=== PATIENT | male | born 1995 | race Caucasian/White ===

== ENCOUNTER 2024-10-12 09:01 | Inpatient (IN) | payer BC, MEDICAID ==
[2024-10-12 09:51] LABS: Glucose,Whole Blood 124 mg/dL (70-110)
--- NOTE | 2024-10-12 10:02 | ED ---
General Adult HPI - General Stated complaint: Petition Time Seen by Provider: 10/12/24 09:34 - History of Present Illness Initial comments: Dictation was produced using [employer] dictation software. please excuse any grammatical, word or spelling errors. Chief Complaint: 29-year-old male brought to the ER for bizarre behavior History of Present Illness: Patient 29-year-old male presents to the emergency department with acute onset bizarre behavior. Allegedly patient had taken some CBD oil. Patient acting bizarrely and having nonsensical speech. Patient reports that he feels tingly all over. He did mention to family that he had some chest pain. Denies any chest pain at the bedside. Send clear patient has a history of psychiatric illness. The ROS documented in this emergency department record has been reviewed and confirmed by me. Those systems with pertinent positive or negative responses have been documented in the HPI. All other systems are other negative and/or noncontributory. - Related Data Home Medications Medication Instructions Recorded Confirmed Acetaminophen Tab [Tylenol Tab] 1,000 mg PO Q6HR PRN 10/12/24 10/12/24 Allergies Allergy/AdvReac Type Severity Reaction Status Date / Time No Known Allergies Allergy Verified 10/12/24 12:16 Review of Systems ROS Statement: Those systems with pertinent positive or pertinent negative responses have been documented in the HPI. ROS Other: All systems not noted in ROS Statement are negative. General Exam - General Exam Comments Initial Comments: PHYSICAL EXAM: General Impression: Alert and oriented x3, not in acute distress, uncooperative HEENT: Normocephalic atraumatic, extra-ocular movements intact, pupils equal and reactive to light bilaterally, mucous membranes moist. Cardiovascular: Heart regular rate and rhythm Chest: Able to complete full sentences, no retractions, no tachypnea Abdomen: abdomen soft, non-tender, non-distended, no organomegaly Musculoskeletal: Pulses present and equal in all extremities, no peripheral edema Motor: no focal deficits noted Neurological: CN II-XII grossly intact, no focal motor or sensory deficits noted Skin: Intact with no visualized rashes Psych: Tangential speech Course Vital Signs 10/12/24 09:34 Temperature 99.0 F Pulse Rate 103 H Respiratory 20 Rate Blood Pressure 137/81 O2 Sat by Pulse 97 Oximetry EKG Findings - EKG Comments: EKG Findings:: My EKG interpretation: Ventricular rate 67, sinus rhythm,. 126, QRS 90, QTc 396. No WA prolongation, no QTC prolongation, no ST or T-wave changes noted. Overall, this EKG is unremarkable Medical Decision Making - Medical Decision Making Was pt. sent in by a medical professional or institution ([facility], ED EDUCATIONAL AIDE, urgent care, hospital, or intermediate...) When possible be specific @ -No Did you speak to anyone other than the patient for history (EMS, parent, family, police, friend...)? What history was obtained from this source @ -No Did you review nursing and triage notes (agree or disagree)? Why? @ -I reviewed and agree with nursing and triage notes Were old charts reviewed (outside hosp., previous admission, EMS record, old EKG, old radiological studies, urgent care reports/EKG's, intermediate records)? Report findings @ -No old charts were reviewed Differential Diagnosis (chest pain, altered mental status, abdominal pain women, abdominal pain men, vaginal bleeding, musculoskeletal, weakness, fever, dyspnea, syncope, headache, dizziness, GI bleed, back pain, seizure, CVA, palpatations, mental health)? @ -Differential Mental Health: Depression, anxiety, bipolar, psychosis, schizophrenia, borderline personality, situational depression, adjustment disorder, behavioral disorder, brain tumor, malingering, substance abuse, encephalopathy, medication reaction, dementia, hypothyroidism, degenerative neurologic disorder, lupus.... This is not meant to be all-inclusive list EKG interpreted by me (3pts min.). @ -See above X-rays interpreted by me (1pt min.). @ -None done CT interpreted by me (1pt min.). @ -Brain is nonacute U/S interpreted by me (1pt. min.). @ -None done What testing was considered but not performed or refused? (CT, X-rays, U/S, labs)? Why? @ -None What meds were considered but not given or refused? Why? @ -None Was smoking cessation discussed for >3mins.? @ -No Were there social determinants of health that impacted care today? How? (Homelessness, low income, unemployed, alcoholism, drug addiction, transp ortation, low edu. Level, literacy, decrease access to med. care, retirement, rehab)? @ -No Was there de-escalation of care discussed even if they declined (Discuss DNR or withdrawal of care, Hospice)? DNR status @ -No What co-morbidities impacted this encounter? (DM, HTN, Smoking, COPD, CAD, Cancer, CVA, ARF, Chemo, Hep., AIDS, mental health diagnosis, sleep apnea, morbid obesity)? @ -None Was patient admitted / discharged? Hospital course, mention meds given and route, prescriptions, significant lab abnormalities, going to OR and other pertinent info. @ -29-year-old male presents emergency department for psychiatric evaluation. Patient allegedly has no history of psychiatric illness and his psychiatric symptoms have started acutely. Vital signs are stable. Patient acutely psychotic at the bedside. Laboratory evaluation is unremarkable. Studies are negative. Patient medically cleared for EPS evaluation. EPS evaluated patient recommended inpatient psych admission. Clinical certification completed Did you discuss the management of the patient with other professionals (professionals i.e. , PA, ED EDUCATIONAL AIDE, lab, RT, psych nurse, director of social work, ballpoint pens assembler, teacher, armored vehicle officer, director of casework department)? Give summary @ -As above Was critical care preformed (if so, how long)? @ -No Undiagnosed new problem with uncertain prognosis? @ -No Drug Therapy requiring intensive monitoring for toxicity (Heparin, Nitro, Insulin, Cardizem)? @ -No Were any procedures done? @ -No Diagnosis/symptom? Acute, or Chronic, or Acute on Chronic? Uncomplicated (without systemic symptoms) or Complicated (systemic symptoms)? @ -Acute psychosis Side effects of treatment? @ -No Exacerbation, Progression, or Severe Exacerbation? @ -No Poses a threat to life or bodily function? How? (Chest pain, [place], [place], pneumonia, PE, COPD, DKA, ARF, appy, cholecystitis, CVA, Diverticulitis, Homicidal, Suicidal, threat to staff... and all critical care pts) @ -yes - Lab Data Result diagrams: 10/12/24 10:32 10/12/24 10:32 Lab Results 10/12/24 10/12/24 10/12/24 Range/Units 09:49 10:32 10:32 WBC 6.19 (4.50-10.00) 10*3/uL RBC 5.61 H (4.40-5.60) 10*6/uL Hgb 16.0 (13.0-17.0) g/dL Hct 44.7 (39.6-50.0) % MCV 79.7 L (80.0-97.0) fL MCH 28.5 (27.0-32.0) pg MCHC 35.8 (32.0-37.0) g/dL Plt Count 254 (140-440) 10*3/uL MPV 8.8 L (9.5-12.2) fL Immature Gran % (Auto) 0.2 % Neutrophils % 71.6 % Lymphocytes % 19.2 % Monocytes % 8.7 % Eosinophils % 0.0 % Basophils % 0.3 % Immature Gran # 0.01 (0.00-0.04) 10*3/uL Neutrophils # 4.43 (1.80-7.70) 10*3/uL Lymphocytes # 1.19 (0.90-5.00) 10*3/uL Monocytes # 0.54 (0.20-1.00) 10*3/uL Eosinophils # 0.00 L (0.04-0.35) 10*3/uL Basophils # 0.02 (0.00-0.10) 10*3/uL Sodium (137-145) mmol/L Potassium (3.5-5.1) mmol/L Chloride (98-107) mmol/L Carbon Dioxide (22-30) mmol/L Anion Gap mmol/L BUN (9-20) mg/dL Creatinine (0.66-1.25) mg/dL Est GFR (CKD-EPI)AfAm (>60 ml/min/1.73 sqM) Est GFR (CKD-EPI)NonAf (>60 ml/min/1.73 sqM) Glucose (74-99) mg/dL POC Glucose (mg/dL) 124 H (70-110) mg/dL POC Glu Certified Medical Transcriptionist ID [place] [facility] Calcium (8.4-10.2) mg/dL Total Bilirubin (0.2-1.3) mg/dL AST (17-59) U/L ALT (4-49) U/L Alkaline Phosphatase (38-126) U/L Total Protein (6.3-8.2) g/dL Albumin (3.5-5.0) g/dL Salicylates mg/dL Urine Opiates Screen Not Detected (NotDetected) Ur Oxycodone Screen Not Detected (NotDetected) Urine Methadone Screen Not Detected (NotDetected) Acetaminophen ug/mL Ur Barbiturates Screen Not Detected (NotDetected) U Tricyclic Antidepress Not Detected (NotDetected) Ur Phencyclidine Scrn Not Detected (NotDetected) Ur Amphetamines Screen Not Detected (NotDetected) U Methamphetamines Scrn Not Detected (NotDetected) U Benzodiazepines Scrn Not Detected (NotDetected) Urine Cocaine Screen Not Detected (NotDetected) U Marijuana (THC) Screen Detected H (NotDetected) Serum Alcohol mg/dL SARS-CoV-2 (PCR) (Not Detectd) 10/12/24 10/12/24 Range/Units 10:32 13:01 WBC (4.50-10.00) 10*3/uL RBC (4.40-5.60) 10*6/uL Hgb (13.0-17.0) g/dL Hct (39.6-50.0) % MCV (80.0-97.0) fL MCH (27.0-32.0) pg MCHC (32.0-37.0) g/dL Plt Count (140-440) 10*3/uL MPV (9.5-12.2) fL Immature Gran % (Auto) % Neutrophils % % Lymphocytes % % Monocytes % % Eosinophils % % Basophils % % Immature Gran # (0.00-0.04) 10*3/uL Neutrophils # (1.80-7.70) 10*3/uL Lymphocytes # (0.90-5.00) 10*3/uL Monocytes # (0.20-1.00) 10*3/uL Eosinophils # (0.04-0.35) 10*3/uL Basophils # (0.00-0.10) 10*3/uL Sodium 142 (137-145) mmol/L Potassium 3.7 (3.5-5.1) mmol/L Chloride 105 (98-107) mmol/L Carbon Dioxide 25 (22-30) mmol/L Anion Gap 12 mmol/L BUN 6 L (9-20) mg/dL Creatinine 0.84 (0.66-1.25) mg/dL Est GFR (CKD-EPI)AfAm >90 (>60 ml/min/1.73 sqM) Est GFR (CKD-EPI)NonAf >90 (>60 ml/min/1.73 sqM) Glucose 105 H (74-99) mg/dL POC Glucose (mg/dL) (70-110) mg/dL POC Glu Certified Medical Transcriptionist ID Calcium 10.2 (8.4-10.2) mg/dL Total Bilirubin 1.0 (0.2-1.3) mg/dL AST 30 (17-59) U/L ALT 25 (4-49) U/L Alkaline Phosphatase 66 (38-126) U/L Total Protein 8.1 (6.3-8.2) g/dL Albumin 5.2 H (3.5-5.0) g/dL Salicylates <1.0 mg/dL Urine Opiates Screen (NotDetected) Ur Oxycodone Screen (NotDetected) Urine Methadone Screen (NotDetected) Acetaminophen <10.0 ug/mL Ur Barbiturates Screen (NotDetected) U Tricyclic Antidepress (NotDetected) Ur Phencyclidine Scrn (NotDetected) Ur Amphetamines Screen (NotDetected) U Methamphetamines Scrn (NotDetected) U Benzodiazepines Scrn (NotDetected) Urine Cocaine Screen (NotDetected) U Marijuana (THC) Screen (NotDetected) Serum Alcohol <10 mg/dL SARS-CoV-2 (PCR) Not Detected (Not Detectd) Disposition Clinical Impression: Psychosis Disposition: TRANSFER TO PSYCH HOSP/UNIT Condition: Fair Decision Time: 14:55
[2024-10-12 10:40] LABS: Basophils # (A) 0.02 10*3/uL (0.00-0.10); Basophils % (A) 0.3 %; HCT 44.7 % (39.6-50.0); Lymphocytes # (A) 1.19 10*3/uL (0.90-5.00); Lymphocytes % (A) 19.2 %; MCH 28.5 pg (27.0-32.0); MCHC 35.8 g/dL (32.0-37.0); MCV 79.7 fL (80.0-97.0); Mean Platelet Volume 8.8 fL (9.5-12.2); Monocytes # (A) 0.54 10*3/uL (0.20-1.00); Monocytes % (A) 8.7 %; Neutrophils # (A) 4.43 10*3/uL (1.80-7.70); Neutrophils % (A) 71.6 %; Platelet Count 254 10*3/uL (140-440); RBC 5.61 10*6/uL (4.40-5.60); RDW 12.9 % (11.5-14.5); WBC 6.19 10*3/uL (4.50-10.00)
[2024-10-12 10:54] LABS: ALT 25 U/L (4-49); AST 30 U/L (17-59); Acetaminophen <10.0 ug/mL; African American GFR (CKD) >90 (>60 ml/min/1.73 sqM); Albumin 5.2 g/dL (3.5-5.0); Alcohol <10 mg/dL; Alkaline Phosphatase 66 U/L (38-126); Anion Gap 12 mmol/L; Blood Urea Nitrogen 6 mg/dL (9-20); Calcium 10.2 mg/dL (8.4-10.2); Carbon Dioxide 25 mmol/L (22-30); Chloride 105 mmol/L (98-107); Glucose 105 mg/dL (74-99); Non-African American GFR(CKD) >90 (>60 ml/min/1.73 sqM); Potassium 3.7 mmol/L (3.5-5.1); Salicylate <1.0 mg/dL; Sodium 142 mmol/L (137-145); Total Protein 8.1 g/dL (6.3-8.2)
[2024-10-12 11:03] LABS: Amphetamine Screen,Urine Not Detected (NotDetected); Barbiturate Screen,Urine Not Detected (NotDetected); Benzodiazepines Screen,Urine Not Detected (NotDetected); Cocaine Screen,Urine Not Detected (NotDetected); Methadone Screen, Urine Not Detected (NotDetected); Opiate Screen,Urine Not Detected (NotDetected); Oxycodone Screen, Urine Not Detected (NotDetected); Phencyclidine Screen,Urine Not Detected (NotDetected); Tricyclic Antidepressant,Urine Not Detected (NotDetected); Urn Cannabinoid Scrn Detected (NotDetected)
[2024-10-12] MEDS: HALOPERIDOL LACTATE 5 MG/ML 1 ML VIAL IM STA (12:51)
[2024-10-12] MEDS: LORazepam 2 MG/ML INJ IM STA (12:51)
[2024-10-12] MEDS: diphenhydrAMINE 50 MG/ML 1 ML VIAL IVP STA (12:52)
[2024-10-12] MEDS: diphenhydrAMINE 50 MG/ML 1 ML VIAL IM STA (12:52)
[2024-10-12] MEDS: LORazepam 2 MG/ML INJ IV STA (12:52)
--- NOTE | 2024-10-12 14:45 | CT ---
EXAMINATION TYPE: CT brain wo con DATE OF EXAM: 10/12/2024 COMPARISON: None CLINICAL INDICATION: Male, 29 years old with history of ams; PHH, AMS. CT DLP: 1112 mGycm Automated exposure control for dose reduction was used. Findings: The ventricles, basal cisterns and sulci over the convexities are within normal limits and there is n o mass effect or shift of midline structures. No abnormal density is seen throughout the brain parenchyma and there is no acute intra or extra-axia l hemorrhage. The posterior fossa including the brainstem, fourth ventricle and cerebellar pontine angles appear no rmal. Intraorbital contents appear normal and symmetric. Visualized paranasal sinuses and mastoid air cells are well aerated. The calvarium is intact. IMPRESSION: No significant abnormality seen. There is no acute bleed or mass effect. [facility], , 10/12/2024 2:43 PM
[2024-10-12] MEDS ORDERED: MAGNESIUM HYDROXIDE 2,400 MG/30 ML CUP PO PRN (15:01)
[2024-10-12] MEDS ORDERED: ACETAMINOPHEN TAB 325 MG TAB PO PRN (15:01)
[2024-10-12] MEDS ORDERED: MAG HYDROX/AL HYDROX/SIMETH 355 ML BOTTLE PO PRN (15:01)
[2024-10-12] MEDS ORDERED: IBUPROFEN 600 MG TAB PO PRN (15:01)
[2024-10-12] MEDS ORDERED: haloperidoL 5 MG TAB PO PRN (15:02)
[2024-10-12] MEDS ORDERED: HALOPERIDOL LACTATE 5 MG/ML 1 ML VIAL IM PRN (15:02)
[2024-10-12] MEDS ORDERED: LORazepam 2 MG/ML INJ IM PRN (15:02)
[2024-10-12] MEDS ORDERED: LORazepam 1 MG TAB PO PRN (15:02)
[2024-10-12] MEDS: NICOTINE 14MG/24HR PATCH TRANSDERM SCH (15:47)
--- NOTE | 2024-10-12 21:14 | P.CONS ---
History of Present Illness - Reason for Consult Consult date: 10/12/24 medical comanagement - Chief Complaint Bizarre behavior - History of Present Illness Orlin is a-year-old male with past medical history of CBD oil usage Patient endorses that he uses CBD oil for approximate the past 5 years. He reports that he put CBD oil underneath his tongue sublingual. He reports his last use was yesterday. The patient is not exactly clear on what the circumstance are regarding his hospitalizations however per psychiatry notes the patient was having bizarre behavior and was having nonsensical speech. He was given psychotropics by the ER and then was admitted to inpatient behavioral health thereafter. Per chart review urine drug screen was positive for cannabis. CBC and BMP were otherwise unremarkable. Alcohol level was negative The patient denies using any other recreational drugs. He denies using alcohol or tobacco products. Review of Systems Pertinent positives and negatives as discussed in HPI, a complete review of systems was performed and all other systems are negative. Past Medical History Past Medical History: No Reported History History of Any Multi-Drug Resistant Organisms: None Reported Past Surgical History: No Surgical Hx Reported Smoking Status: Former smoker Medications and Allergies Home Medications Medication Instructions Recorded Confirmed Type Acetaminophen Tab [Tylenol Tab] 1,000 mg PO Q6HR PRN 10/12/24 10/12/24 History Allergies Allergy/AdvReac Type Severity Reaction Status Date / Time No Known Allergies Allergy Verified 10/12/24 16:01 Physical Exam Vitals: Vital Signs Temp Pulse Pulse Resp BP BP Pulse Ox 10/12/24 15:30 98.5 F 89 18 122/80 97 10/12/24 15:17 98.2 F 105 H 16 104/56 99 10/12/24 09:34 99.0 F 103 H 20 137/81 97 Intake and Output 10/12/24 10/12/24 10/12/24 06:59 14:59 22:59 Other: Weight 79.577 kg General: non toxic, male appears stated age. Derm: warm, dry Head: atraumatic, normocephalic, symmetric Eyes: EOMI, no lid lag, anicteric sclera ENT: Nose and ears atraumatic, no thrush, no pharyngeal erythema Neck: No thyromegaly, no cervical lymphadenopathy, trachea midline, supple Mouth: no lip lesion, mucus membranes moist Cardiovascular: S1S2 reg, no murmur Lungs: clear to ascultation bilateral on room air Abdominal: soft, nontender to palpation, no guarding, no appreciable organomegaly Ext: no gross muscle atrophy appreciated Neuro: moving all extremeties Psych: calm. at times cooperative however at times does not appear to coopearate with physical exam/HPI Results CBC & Chem 7: 10/12/24 10:32 10/12/24 10:32 Labs: Abnormal Lab Results - Last 24 Hours (Table) 10/12/24 10/12/24 10/12/24 Range/Units 09:49 10:32 10:32 RBC 5.61 H (4.40-5.60) 10*6/uL MCV 79.7 L (80.0-97.0) fL MPV 8.8 L (9.5-12.2) fL Eosinophils # 0.00 L (0.04-0.35) 10*3/uL BUN (9-20) mg/dL Glucose (74-99) mg/dL POC Glucose (mg/dL) 124 H (70-110) mg/dL Albumin (3.5-5.0) g/dL U Marijuana (THC) Screen Detected H (NotDetected) 10/12/24 Range/Units 10:32 RBC (4.40-5.60) 10*6/uL MCV (80.0-97.0) fL MPV (9.5-12.2) fL Eosinophils # (0.04-0.35) 10*3/uL BUN 6 L (9-20) mg/dL Glucose 105 H (74-99) mg/dL POC Glucose (mg/dL) (70-110) mg/dL Albumin 5.2 H (3.5-5.0) g/dL U Marijuana (THC) Screen (NotDetected) Assessment and Plan Assessment: #) Psychosis, 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 UDS positive for cannabis. He was provided with psychotropics in ER. I will check a RPR to r/o neurosyphillis. #) Cannabis/CBD oil usage. would recommend cessation RPR and TSH pending Thank you for allowing us to take care of this patient. please do not hesitate to contact [facility] physicians if any questions arise. Time with Patient: Greater than 30
--- NOTE | 2024-10-13 14:19 | P.HP ---
Psychiatric H&P - . H&P Date: 10/13/24 History & Physical: Allergies Allergy/AdvReac Type Severity Reaction Status Date / Time No Known Allergies Allergy Verified 10/12/24 16:01 Vital Signs Temp 98.1 F 10/13/24 08:28 Pulse 116 H 10/13/24 13:22 Resp 18 10/13/24 08:28 BP 123/78 10/13/24 13:22 Pulse Ox 97 10/13/24 08:28 FiO2 Intake & Output 10/12/24 10/13/24 10/13/24 18:59 06:59 18:59 Weight 79.577 kg Laboratory Last Values WBC 6.19 10*3/uL (4.50-10.00) 10/12/24 10:32 RBC 5.61 10*6/uL (4.40-5.60) H 10/12/24 10:32 Hgb 16.0 g/dL (13.0-17.0) 10/12/24 10:32 Hct 44.7 % (39.6-50.0) 10/12/24 10:32 MCV 79.7 fL (80.0-97.0) L 10/12/24 10:32 MCH 28.5 pg (27.0-32.0) 10/12/24 10:32 MCHC 35.8 g/dL (32.0-37.0) 10/12/24 10:32 Plt Count 254 10*3/uL (140-440) 10/12/24 10:32 MPV 8.8 fL (9.5-12.2) L 10/12/24 10:32 Immature Gran % (Auto) 0.2 % 10/12/24 10:32 Neutrophils % 71.6 % 10/12/24 10:32 Lymphocytes % 19.2 % 10/12/24 10:32 Monocytes % 8.7 % 10/12/24 10:32 Eosinophils % 0.0 % 10/12/24 10:32 Basophils % 0.3 % 10/12/24 10:32 Immature Gran # 0.01 10*3/uL (0.00-0.04) 10/12/24 10:32 Neutrophils # 4.43 10*3/uL (1.80-7.70) 10/12/24 10:32 Lymphocytes # 1.19 10*3/uL (0.90-5.00) 10/12/24 10:32 Monocytes # 0.54 10*3/uL (0.20-1.00) 10/12/24 10:32 Eosinophils # 0.00 10*3/uL (0.04-0.35) L 10/12/24 10:32 Basophils # 0.02 10*3/uL (0.00-0.10) 10/12/24 10:32 Sodium 142 mmol/L (137-145) 10/12/24 10:32 Potassium 3.7 mmol/L (3.5-5.1) 10/12/24 10:32 Chloride 105 mmol/L (98-107) 10/12/24 10:32 Carbon Dioxide 25 mmol/L (22-30) 10/12/24 10:32 Anion Gap 12 mmol/L 10/12/24 10:32 BUN 6 mg/dL (9-20) L 10/12/24 10:32 Creatinine 0.84 mg/dL (0.66-1.25) 10/12/24 10:32 Est GFR (CKD-EPI)AfAm >90 (>60 ml/min/1.73 sqM) 10/12/24 10:32 Est GFR (CKD-EPI)NonAf >90 (>60 ml/min/1.73 sqM) 10/12/24 10:32 Glucose 105 mg/dL (74-99) H 10/12/24 10:32 POC Glucose (mg/dL) 124 mg/dL (70-110) H 10/12/24 09:49 POC Glu Maintenance Planning Clerk ID Ignacio Marinelli 10/12/24 09:[address] Glu mg/dL 100 mg/dL 10/12/24 10:32 Hemoglobin A1c 5.1 % (<=6.0) 10/12/24 10:32 Calcium 10.2 mg/dL (8.4-10.2) 10/12/24 10:32 Total Bilirubin 1.0 mg/dL (0.2-1.3) 10/12/24 10:32 AST 30 U/L (17-59) 10/12/24 10:32 ALT 25 U/L (4-49) 10/12/24 10:32 Alkaline Phosphatase 66 U/L (38-126) 10/12/24 10:32 Total Protein 8.1 g/dL (6.3-8.2) 10/12/24 10:32 Albumin 5.2 g/dL (3.5-5.0) H 10/12/24 10:32 TSH 1.820 UIU/ML (0.350-5.500) 10/12/24 10:32 Salicylates <1.0 mg/dL 10/12/24 10:32 Urine Opiates Screen Not Detected (NotDetected) 10/12/24 10:32 Ur Oxycodone Screen Not Detected (NotDetected) 10/12/24 10:32 Urine Methadone Screen Not Detected (NotDetected) 10/12/24 10:32 Acetaminophen <10.0 ug/mL 10/12/24 10:32 Ur Barbiturates Screen Not Detected (NotDetected) 10/12/24 10:32 U Tricyclic Antidepress Not Detected (NotDetected) 10/12/24 10:32 Ur Phencyclidine Scrn Not Detected (NotDetected) 10/12/24 10:32 Ur Amphetamines Screen Not Detected (NotDetected) 10/12/24 10:32 U Methamphetamines Scrn Not Detected (NotDetected) 10/12/24 10:32 U Benzodiazepines Scrn Not Detected (NotDetected) 10/12/24 10:32 Urine Cocaine Screen Not Detected (NotDetected) 10/12/24 10:32 U Marijuana (THC) Screen Detected (NotDetected) H 10/12/24 10:32 Serum Alcohol <10 mg/dL 10/12/24 10:32 Treponema pallidum Ab Nonreactive (Nonreactive) 10/12/24 10:32 SARS-CoV-2 (PCR) Not Detected (Not Detectd) 10/12/24 13:01 10/13/24 14:12 IDENTIFYING DATA: Patient is a 29-year-old male, unemployed and living independe ntly CHIEF COMPLAINT: Psychosis HPI: Patient presented to the hospital with bizarre behaviors. Per EPS, "Cl laying sideways on bed with feet on the floor and blanket over face. A/O x3 brought in by brother Cesar on a petition due to bizzare behavior,irritability, and paranoia. Clinician spoke with brother prior to evaluating Cl. Brother reports cl has not been themselves since the weekend prior. Brother reports " he has been talking to himself, saying random names, trouble rememebering family members, calling odd times of the day, believes people are out to do something to him. For example, he went to [employer] the other day, they accidentally gave him two cups, in his mind he thought they were trying to drug him. He's very argumentative with our parents. His focus is not good, he completely forgot to pick my Mom up at the airport, even though I had talked to him that morning and he reminded me he was going to. He showed up at my home at 5:00 am today making no sense and following my around asking for a hug very bizzarely. He kept reffering to me as vane which is not like him. We have never seen him like this, so I brought him here." Cl reports having no idea why they are at the hospital. When asked basic questions cl would be argumentative about details of the questions, refusing to answer unless the question was very specific. Cl presenting with flight of ideas, tangential, pressured speech, racing thoughts, bizzare behavior, paranoia, guarded, labile, demanding, and trouble w memory and focus. When asked questions that required yes or no answers cl would begin to di sect the reasoning for the question and demand specificity as to rationale of question and type. Brother reports cl has displayed paranoia in the past related to conspiracy theories and feaful people were out to get them. Brother reports " When he was at my house this morning he picked up the dog, who is usually on a leash, and started walking toward the road. I asked him what he was doing and he would'nt answer me, I finally ended up yelling at him to get him to respond. He said " I am going for a walk vane, keep my things with you, they will be needed later. You're ok." Brother states " conversations have been this way the last few days and not making sense. " Cl has masters in accounting and demanded to know clinicians degree, where is was obtained from, state license number, whether clinician has a bachelors in arts or sciences. Cl is unemployed and lives alone.Judgement/Insight/Impulse control : poor ADLS: fair Sleep/Miguel: vague answerts given " depends on the day." Could not remember what they ate the night before. Medical issues: none reported. Cl reports having not seen a PCP in "5 yrs". Medications: none reported. Hx of MH tx : none reported. Hx of FRANDY: UDS pos THC. Brother reports cl uses CBD oil. Cl reports alcohol occaisionally. When asked if they use drugs cl again asked for specificity as to legality, type, dosage etc. Hx of in pat rehab: none Fam hx: when asked about family hx cl went on a tangent as to if their parents where infact biological. " How would I know, I don't remember being born. I know that I have been around them my entire life. So I assume they are my parents." Hx of trauma: none reported. Hx of self harm: none reported. Hx of legal: none reported. Denies SI/HI". Patient seen and evaluated on the unit and was agreeable with speaking to service writer advisor in office. He states ultimately having chest pain while at [employer] that felt as though he was having a heart attack. Since then going to [employer] where he felt so off that they were going to contact an ambulance however he declined stating he does not have his insurance card. He mentions the next day going to his brother's house early in the morning due to feeling off again and that he accidentally took his brother's girlfriend back that looked similar to his however he returned that and then ultimately went home. He mentions recently using CBD oil. He states sometimes speaking out loud however he denies hearing voices or responding internally. Patient did appear linear in conversation however did appear paranoid at times. Patient denies any suicidal or homicidal ideations intent or plan. At this time patient denies any auditory or visual hallucinations. Patient denies any flight of ideas racing thoughts and increased in goal directed behavior. Patient admits to using rare alcohol, recently CBD oil with positive UDS for THC. Spoke to patient's mother and brother after patient signed CHARISSE to which they state patient's symptoms have gradually increased over the past week. They do deny any past psych history and did mention the recent use of CBD oil. His mother states he was supposed to pick her up from the airport last week and despite her seeing him in the parking lot he ended up taking off and would not return her phone calls. Patient's brother states that patient has been acting out of the ordinary, bizarre behavior such as chasing the chickens at his house and then randomly coming to his house early in the morning and grabbing his girlfriend's luggage and dog and attempting to leave. Patient's brother noted that he was responding internally, talking to himself and laughing. Brother mentioned that patient would make random statements such as his mom is going to . Patient's mother states that patient has been stressed out due to no job and no health insurance and that things have been piling up. Mom however denied any access to firearms at his house. PAST PSYCHIATRIC HISTORY: Patient has no past psych history. Patient denies being on any psychiatric medications. Patient denies any previous psychiatric hospitalizations. Patient denies any psychiatric outpatient follow-up. Patient denies any history of suicide attempts in the past. PMH: as per ER note ALLERGIES: as per EMR SUBSTANCE USE HISTORY: Rare alcohol, denies any cannabis or other illicit drugs other than using CBD oil FAMILY PSYCHIATRIC/SUBSTANCE USE HISTORY: Denies SOCIAL HISTORY: Patient is single and has no children. He completed his masters in accounting however is currently unemployed and living off of his savings and money given to him by his brother. He lives alone. He has no legal issues. MENTAL STATUS EXAM: General Appearance: Patient appears to be stated age is alert, directable, and attempts to cooperate. Patient appears to have fair hygiene and grooming. Behavior: Patient is seated without any agitated behavior. Speech: Patient's speech is fluent and nonpressured. Mood/Affect: Patient reports their mood is "okay", affect is congruent and constricted. Suicidality/Homicidality: Patient denies having any homicidal ideation intent or plan. Denies any suicidal ideations intent or plan Perceptions: Patient denies any visual hallucinations and denies any auditory hallucinations Though content/process: There is no evidence of any delusional thought content and thought process is linear and goal-directed. There is evidence of paranoia Memory and concentration: AOX3, grossly intact for the purposes of this session. Can spell "WORLD" backwards Judgment and insight: Poor STRENGTHS/WEAKNESSES: strength is that patient is resilient and has a strong family support network. Weakness is that patient has poor judgment and is impulsive INTELLECT: Above average IMPRESSIONS: Substance-induced psychotic disorder PLAN: -Patient is admitted under involuntary status to MHU for stabilization of psychiatric symptoms and safety. Patient has not signed adult voluntary form and and is placed in patient's chart. A second certification was completed and along with petition will be filed for court. Attempted to have patient signed voluntary form with a quick discharge given likely substance-induced psychosis however patient displayed paranoia related to signing the AFV form. Will keep him involuntary -Medications : Start Abilify 5 mg at bedtime for psychosis -Ativan and Haldol PRN for agitation/aggression -Patient was counselled on substance abuse and desired to cut back on use-Will offer patient subtance use rehab -Patient was informed of the risks, benefits and side effects of the medication and patient verbally consented to taking the medications. Patient did not sign med consent form and was placed in chart. -Internal Medicine consult to perform medical evaluation and physical. -NRT -not needed as patient does not smoke -SW on board for discharge planning. Encourage patient to participate in groups to work on coping skills. Will await deferral and court date.
[2024-10-13] MEDS: ARIPiprazole 5 MG TAB PO SCH (22:06)
--- NOTE | 2024-10-14 13:10 | P.PN ---
Progress Note - Text Progress Note Date: 10/14/24 Interval History: Patient was seen in his room and was directable and agreeable to speak with wr iter in the room. Patient presents linear and logical in conversation, polite. He did not take Abilify last night however he does report sleeping well with good appetite. Staff documented 7 hours of sleep overnight. He states he did speak to his family yesterday and he was reminded of the involuntary process. Patient displayed slight paranoia/confusion given his unwillingness to sign AFV so that he can be discharged back home with his family who agreed that he is at his baseline. Patient otherwise expressed no concerns. At this time patient denies any suicidal or homicidal ideations, intent or plan. Patient denies any auditory, visual hallucinations and denies any delusions. Mental Status Exam: General Appearance: Patient appears to be stated age is alert, directable, and cooperative. Behavior: Patient is calmly laying without any agitated behavior. Speech: Patient's speech is fluent and nonpressured. Mood/Affect: Mood is improving mildly, affect is congruent and reactive. Suicidality/Homicidality: Patient denies having any suicidal or homicidal ideation intent or plan. Perceptions: Patient denies any visual hallucinations and denies any auditory hallucinations Though content/process: There is no evidence of any delusional thought content and thought process is superficially linear however illogical given his unwillingness to sign AFV, mild paranoia. Memory and concentration: AOX3, grossly intact for the purposes of this session Judgment and insight: Poor Assessment Substance-induced psychotic disorder Plan: -Patient continues to meet criteria for inpatient psychiatric admission for symptom stabilization and safety. Patient has not signed adult voluntary form and medication consent and was placed in patient's chart. -Medications: Continue to offer Abilify 5 mg at bedtime for psychosis -When necessary Ativan and Haldol for agitation/aggression. -Labs: Reviewed -SW on board for discharge planning. Encouraged the patient to participate in milieu. Currently awaiting deferral with privacy attorney and court date.
--- NOTE | 2024-10-15 14:03 | P.PN ---
Progress Note - Text Progress Note Date: 10/15/24 Dictation was produced using [employer] dictation software. Please excuse any grammatical, word or spelling errors. Interval history: Patient was seen in his room and was directable and agreeable to speak with the film writer in the office for psychiatric follow-up. The patient states that he is feeling good, states that he slept well last night, appetite is good. States that depression and anxiety, to be at the low side, rated both at 1/10. Denied any current SI/HI or self harm. Denied any current AVH. Denied any paranoia. He was able to elaborate on the reasons for this hospitalization, states that he felt like he had a heart attack while at the gym, and he got a call from a scam which made him suspicious. States that his brother brought him here. States that he never used any psychotropic medication, states that he use CBD oil for about 6 years. He states that he has a master in science and accounting, states that he is looking for a job now. The patient was minimizing his cannabis use and has no insight into his use or to the need off medication to help patient was reminded on the involuntary status, he reported that he still does not consider medication at this time, and reported that he does not think cannabis will cause anything bad since he has been using the "low version of cannabis." Mental status exam: General Appearance: Patient appears to be stated age is alert, directable, and cooperative. Behavior: Patient is seated without any agitated behavior. Speech: Patient's speech is fluent and nonpressured. Mood/Affect: Mood is improving mildly, affect is congruent and reactive. Suicidality/Homicidality: Patient denies having any suicidal or homicidal ideation intent or plan. Perceptions: Patient denies any visual hallucinations and denies any auditory hallucinations Though content/process: There is no evidence of any delusional thought content and thought process is superficially linear, mild paranoia, lack insight into cannabis use. Memory and concentration: AOX3, grossly intact for the purposes of this session Judgment and insight: Poor Assessment Substance-induced psychotic disorder Assessment/Plan: Continue with current diagnosis. Patient continues to meet criteria for inpatient psychiatric admission for symptom stabilization and safety. Patient will be maintained on current psychotropic medication regimen which include Abilify 5 mg p.o. at bedtime, patient has been refusing his medication. Monitor for medication compliance and for any psychotropic medication side effects. Will continue to monitor ongoing response to treatment. Patient was educated on the involuntary process, seem to understand. Encouraged participation in milieu.
--- NOTE | 2024-10-16 12:48 | P.PN ---
Progress Note - Text Progress Note Date: 10/16/24 Dictation was produced using [employer] dictation software. Please excuse any grammatical, word or spelling errors. Interval history: Patient was seen in his room and was directable and agreeable to speak with the play writer in the office for psychiatric follow-up. The patient states that he is feeling alright, states that he was able to sleep last night, and has been eating good, reported that depression and anxiety to be at the low side, rated both at 1-2/10. He denied any current SI/HI or self harm. He denied any current auditory or visual hallucination, reported he feels safe while in the unit. Getting along well with everyone in the unit. Reported that he has been in contact with his family, reported that his mother visited him yesterday and reported that it was good, states that she told them that he made the right choice for coming to the hospital. Pt was concerned about the ECG results, results reviewed and shared with the patient about normal ECG. We discussed the UDS results and his cannabis usage, patient reported that he is planning to cut down. States that he does not feel he needs any medication at this time. Patient was educated on the involuntary process, he reported that he understands. Mental status exam: General Appearance: Patient appears to be stated age is alert, directable, and cooperative. Behavior: Patient is seated without any agitated behavior. Speech: Patient's speech is fluent and nonpressured. Mood/Affect: Mood is improving mildly, affect is congruent and reactive. Suicidality/Homicidality: Patient denies having any suicidal or homicidal ideation intent or plan. Perceptions: Patient denies any visual hallucinations and denies any auditory hallucinations Though content/process: There is no evidence of any delusional thought content and thought process is superficially linear, mild paranoia, lack insight into cannabis use. Memory and concentration: AOX3, grossly intact for the purposes of this session Judgment and insight: Poor Assessment Substance-induced psychotic disorder Assessment/Plan: Continue with current diagnosis. Patient continues to meet criteria for inpatient psychiatric admission for symptom stabilization and safety. Patient will be maintained on current psychotropic medication regimen which include Abilify 5 mg p.o. at bedtime, patient has been refusing his medication. Monitor for medication compliance and for any psychotropic medication side effects. Will continue to monitor ongoing response to treatment. Patient was educated on the involuntary process, seem to understand. Encouraged participation in milieu.
[2024-10-16 15:39] LABS: Appearance,Urine Clear (Clear); Bilirubin,Urine Negative (Negative); Blood,Urine Small (Negative); Color,Urine Yellow; Glucose,Urine (UA) Negative (Negative); Ketones,Urine 2+ (Negative); Leukocyte Esterase,Urine Negative (Negative); Mucus,Urine Few /hpf; Nitrite,Urine Negative (Negative); PH, Urine 6.5 (5.0-8.0); Protein,Urine Negative (Negative); RBC,Urine 4 /hpf (0-5); Specific Gravity,Urine 1.016 (1.001-1.035); Urobilinogen,Urine <2.0 mg/dL (<2.0); WBC,Urine 1 /hpf (0-5)
--- NOTE | 2024-10-17 13:34 | P.PN ---
Progress Note - Text Progress Note Date: 10/17/24 Interval History: [place] [facility] [place] directable and agreeable to speak with technical document writer [place] [facility] [place]. He reports feeling well today, states his mom visited him over the weekend and that he has been keeping busy doing word searches. Patient was bright, reactive, polite. Still exhibits some mild paranoia as the voluntary versus involuntary process was discussed again and patient continues to state he does not wish to sign his name on any documents, stated he has 2 degrees and he feels fine. Reminded patient of loan servicing officer coming today to which he declined signing a deferral and will likely go to court. He reports good sleep and appetite otherwise, expressed no concerns. At this time patient denies any suicidal or homicidal ideations, intent or plan. Patient denies any auditory, visual hallucinations and denies any delusions. Patient denies any side effects from the medications and has been compliant with meds. Mental Status Exam: General Appearance: Patient appears to be stated age is alert, directable, and cooperative. Behavior: Patient is calmly seated without any agitated behavior. Speech: Patient's speech is fluent and nonpressured. Mood/Affect: Mood is improving mildly, affect is congruent and reactive. Suicidality/Homicidality: Patient denies having any suicidal or homicidal ideation intent or plan. Perceptions: Patient denies any visual hallucinations and denies any auditory hallucinations Though content/process: There is no evidence of any delusional thought content and thought process is linear however mild paranoia does exist. Memory and concentration: AOX3, grossly intact for the purposes of this session Judgment and insight: Poor Assessment Substance-induced psychotic disorder Plan: -Patient continues to meet criteria for inpatient psychiatric admission for symptom stabilization and safety. Patient has not signed adult voluntary form and medication consent and was placed in patient's chart. -Medications: Continue to offer Abilify 5 mg at bedtime for psychosis -When necessary Ativan and Haldol for agitation/aggression. -Labs: Reviewed -SW on board for discharge planning. Encouraged the patient to participate in milieu. Currently awaiting deferral with banking attorney and court date. Anticipate discharge home tomorrow
[2024-10-17 20:07] VITALS: RESP 18
[2024-10-18 08:54] VITALS: BP 125/84; PULSE 97; TEMP 97.4
--- NOTE | 2024-10-18 13:04 | P.DS ---
Providers Date of admission: 10/12/24 14:50 Expected date of discharge: 10/18/24 Attending physician: Mayela Herr MD Consults: 10/12/24 15:01 Consult Physician Routine Consulting Provider: [facility] Consult Reason/Comments: H&P Do you want consulting provider notified?: Yes Primary care physician: Noel Scott - Discharge Diagnosis(es) (1) Substance-induced psychotic disorder Current Visit: Yes Status: Acute Priority: High Hospital Course: Admission HPI: Admission note was completed by greeting card writer "Patient presented to the hospital with bizarre behaviors. Per EPS, "Cl laying sideways on bed with feet on the floor and blanket over face. A/O x3 brought in by brothharshil Guerrero on a petition due to bizzare behavior,irritability, and paranoia. Clinician spoke with brother prior to evaluating Cl. Brother reports cl has not been themselves since the weekend prior. Brother reports " he has been talking to himself, saying random names, trouble rememebering family members, calling odd times of the day, believes people are out to do something to him. For example, he went to [facility] the other day, they accidentally gave him two cups, in his mind he thought they were trying to drug him. He's very argumentative with our parents. His focus is not good, he completely forgot to pick my Mom up at the airport, even though I had talked to him that morning and he reminded me he was going to. He showed up at my home at 5:00 am today making no sense and following my around asking for a hug very bizzarely. He kept reffering to me as vane which is not like him. We have never seen him like this, so I brought him here." Cl reports having no idea why they are at the hospital. When asked basic questions cl would be argumentative about details of the questions, refusing to answer unless the question was very specific. Cl presenting with flight of ideas, tangential, pressured speech, racing thoughts, bizzare behavior, paranoia, guarded, labile, demanding, and trouble w memory and focus. When asked questions that required yes or no answers cl would begin to disect the reasoning for the question and demand specificity as to rationale of question and type. Brother reports cl has displayed paranoia in the past related to conspiracy theories and feaful people were out to get them. Brother reports " When he was at my house this morning he picked up the dog, who is usually on a leash, and started walking toward the road. I asked him what he was doing and he would'nt answer me, I finally ended up yelling at him to get him to respond. He said " I am going for a walk vane, keep my things with you, they will be needed later. You're ok." Brother states " conversations have been this way the last few days and not making sense. " Cl has masters in accounting and demanded to know clinicians degree, where is was obtained from, state license number, whether clinician has a bachelors in arts or sciences. Cl is unemployed and lives alone.Judgement/Insight/Impulse control : poor ADLS: fair Sleep/Miguel: vague answerts given " depends on the day." Could not remember what they ate the night before. Medical issues: none reported. Cl reports having not seen a PCP in "5 yrs". Medications: none reported. Hx of MH tx : none reported. Hx of FRANDY: UDS pos THC. Brother reports cl uses CBD oil. Cl reports alcohol occaisionally. When asked if they use drugs cl again asked for specificity as to legality, type, dosage etc. Hx of in pat rehab: none Fam hx: when asked about family hx cl went on a tangent as to if their parents where infact biological. " How would I know, I don't remember being born. I know that I have been around them my entire life. So I assume they are my parents." Hx of trauma: none reported. Hx of self harm: none reported. Hx of legal: none reported. Denies SI/HI". Patient seen and evaluated on the unit and was agreeable with speaking to greeting card writer in office. He states ultimately having chest pain while at [employer] that felt as though he was having a heart attack. Since then going to [facility] where he felt so off that they were going to contact an ambulance however he declined stating he does not have his insurance card. He mentions the next day going to his brother's house early in the morning due to feeling off again and that he accidentally took his brother's girlfriend back that looked similar to his however he returned that and then ultimately went home. He mentions recently using CBD oil. He states sometimes speaking out loud however he denies hearing voices or responding internally. Patient did appear linear in conversation however did appear paranoid at times. Patient denies any suicidal or homicidal ideations intent or plan. At this time patient denies any auditory or visual hallucinations. Patient denies any flight of ideas racing thoughts and increased in goal directed behavior. Patient adm its to using rare alcohol, recently CBD oil with positive UDS for THC. Spoke to patient's mother and brother after patient signed [facility]IS[facility] to which they state patient's symptoms have gradually increased over the past week. They do deny any past psych history and did mention the recent use of CBD oil. His mother states he was supposed to pick her up from the airport last week and despite her seeing him in the parking lot he ended up taking off and would not return her phone calls. Patient's brother states that patient has been acting out of the ordinary, bizarre behavior such as chasing the chickens at his house and then randomly coming to his house early in the morning and grabbing his girlfriend's luggage and dog and attempting to leave. Patient's brother noted that he was responding internally, talking to himself and laughing. Brother mentioned that patient would make random statements such as his mom is going to . Patient's mother states that patient has been stressed out due to no job and no health insurance and that things have been piling up. Mom however denied any access to firearms at his house." Hospital course: Upon admission to the unit patient was admitted involuntarily on a petition and certificate and a second certificate was completed and faxed to the courts. Given patient's return to baseline the next day with corroboration from mother the patient sounded better, attempted to change patient to AFV with a quick discharge home however patient did display some odd thinking, refused to sign AFV or deferral and thus awaiting court scheduled for next 10/26/2024.. Patient got along well with other patients on the unit and followed unit protocol. Patient was compliant with the medications and denied any side effects throughout hospital course. Patient was started on Abilify 5 mg at bedtime for psychosis however he did not take this medication. Patient spoke of his stressors and engaged in therapy both group and individual. Patient was a lso seen by medical team for history and physical exam. Throughout the course of the hospitalization patient gradually improved with regards to mood, anxiety, sleep and returned back to their baseline level of functioning. On the day of discharge patient denied any suicidal or homicidal ideations intent or plan denied any auditory or visual hallucinations. The patient denied any access to guns or weapons. Patient denied any paranoia and did not endorse any delusions. Patient does have a significant history of substance abuse and was counseled on abstaining from all substances including alcohol and marijuana which was likely the cause of his underlying psychosis. Patient was also counseled on the medications and need for regular compliance and was encouraged to follow-up with their outpatient appointment for mental health and also for primary care. Prior to discharge a family meeting will be arranged by social media sr strategy manager to answer any questions and ensure safety upon discharge including making sure that guns/weapons are either removed from the home or locked away. Patient to be discharged back home alone and will follow-up with [facility]. Mental status exam: General Appearance: Patient appears to be stated age is alert, pleasant, and cooperative. Patient is in no acute distress and has fair hygiene and grooming Behavior: Patient is calmly seated without any agitated behavior. Speech: Patient's speech is fluent and nonpressured. Mood/Affect: Patient reports their mood is "good", affect is congruent and euthymic. Suicidality/Homicidality: Patient denies having any suicidal or homicidal ideation intent or plan. Perceptions: Patient denies any auditory or visual hallucinations. Though content/process: There is no evidence of any delusional thought content and thought process is linear, mild paranoia evident. Memory and concentration: AOX3, grossly intact for the purposes of this session. Can spell "WORLD" backwards correctly. Judgment and insight: Questionable Impression: Substance-induced psychotic disorder Plan: -Continue with discharge today as patient has improved and stabilized psychiatrically and is not currently an imminent threat to themself and/or ot hers. -Continue medications: abilify 5 mg at bedtime -Patient was counseled on the need for medication compliance and appropriate follow-up at mental health and also primary care for medical issues. Patient verbalized understanding and agreed. -Social work to help coordinate patients discharge today. also to ensure safe home environment that guns/weapons are either removed from the home or locked away. Social work also to arrange for patients follow up appointments with [facility] for psychiatric care along with follow up with primary care provider. -Patient counseled on abstaining from recreational drugs and marijuana and alcohol. Was informed/educated on the adverse effects on their physical and mental health. Patient verbally agreed and understood. -Patient was instructed to return to the hospital or seek immediate medical care if their psychiatric or medical symptoms do worsen or reoccur. Abnormal Labs 10/12/24 10/12/24 10/12/24 09:49 10:32 10:32 RBC 5.61 H MCV 79.7 L MPV 8.8 L Eosinophils # 0.00 L BUN Glucose POC Glucose (mg/dL) 124 H Albumin Urine Ketones Urine Blood Urine Mucus U Marijuana (THC) Screen Detected H 10/12/24 10/12/24 10:32 10:32 RBC MCV MPV Eosinophils # BUN 6 L Glucose 105 H POC Glucose (mg/dL) Albumin 5.2 H Urine Ketones 2+ H Urine Blood Small H Urine Mucus Few H U Marijuana (THC) Screen Allergies Allergy/AdvReac Type Severity Reaction Status Date / Time No Known Allergies Allergy Verified 10/12/24 16:01 Vital Signs Temp 97.4 F L 10/18/24 08:53 Pulse 97 10/18/24 08:53 Resp 18 10/17/24 20:06 BP 125/84 10/18/24 08:53 Pulse Ox 96 10/18/24 08:53 FiO2 Patient Condition at Discharge: Stable Plan - Discharge Summary Discharge Rx Participant: No New Discharge Prescriptions: New ARIPiprazole [Abilify] 5 mg PO HS 30 Days #30 tab Discontinued Acetaminophen Tab [Tylenol Tab] 1,000 mg PO Q6HR PRN PRN Reason: Pain Discharge Medication List ARIPiprazole [Abilify] 5 mg PO HS 30 Days #30 tab 10/18/24 [Rx] Follow up Appointment(s)/Referral(s): Noel Scott DO [Primary Care Provider] - 1-2 days Patient Instructions/Handouts: Psychotic Disorder (DC) Activity/Diet/Wound Care/Special Instructions: [facility] Discharge Info Avoid the use of street drugs and alcohol. Take all medications as prescribed. When you are in need of refills on your medications, please contact your outpatient medical provider and/or outpatient psychiatrist. Please go to your scheduled outpatient appointments for aftercare treatment. If symptoms return or become worse, call the crisis line at or and/or visit the nearest emergency room for assistance. National Suicide and Crisis Lifeline - call or text 988 Discharge Disposition: HOME SELF-CARE
== END 2024-10-18 13:53 | disposition home or self-care (01) | DRG 776 ==
LOC: EC 09:01 → 3MHU 14:50
PROVIDERS: ADMIT Psychiatry & Neurology Psychiatry; ATTEND Psychiatry & Neurology Psychiatry
DX: F19.159 Other psychoactive substance abuse with psychoactive substance-induced psychotic disorder, unspecified (principal); F12.159 Cannabis abuse with psychotic disorder, unspecified; F19.10 Other psychoactive substance abuse, uncomplicated; F32.A Depression, unspecified; F41.9 Anxiety disorder, unspecified; Z79.899 Other long term (current) drug therapy; Z56.0 Unemployment, unspecified; Z87.891 Personal history of nicotine dependence
CPT/HCPCS: 36415; 70450; 80053; 80143; 80179; 80306; 80320; 81001; 83036; 84443; 85025; 86780; 87635; 93005; 96372; 99285